=== PATIENT | male | born 1975 | race Caucasian/White ===

== ENCOUNTER 2016-05-09 06:17 | Day surgery (SDC) | payer OTHER ==
[~2016-05-09 06:17] MED LIST: IV START KIT ONE; LACTATED RINGERS 1,000 ML ONE
[2016-05-09] MEDS ORDERED: PROPOFOL 80 ML IV ONE (07:05)
[2016-05-09] MEDS ORDERED: LIDOCAINE 2% (PRES FREE) 5 ML VIAL ONE (07:05)
[2016-05-09] MEDS ORDERED: LACTATED RINGERS 1,000 ML ONE (07:45)
[2016-05-09] MEDS ORDERED: LACTATED RINGERS 1,000 ML IV SCH (08:00)
--- NOTE | 2016-05-11 09:33 | SURGPATH ---
[facility] [address] [place] [id number] Patient Name: FABI HERNANDEZ MR#: [id number] : 1975 Gender: M Specimen #: [id number] Collected: 05/09/2016 Received: 05/10/2016 Reported: 05/11/2016 Submitting Phys: IAIN LAL Copy To Phys: MAURA AGOSTO [facility] Clinical History / Pre-Operative Diagnosis: DIVERTICULITIS WITH PERFORATION/ABSCESS Specimen Source / Surgical Procedure Performed: SIGMOID BIOPSY Interpretation: COLON, SIGMOID, BIOPSY: - COLONIC MUCOSA SHOWING NO DIAGNOSTIC ABNORMALITIES. - NO EVIDENCE OF SIGNIFICANT INFLAMMATION OR MALIGNANCY. Electronically Signed Out Joey Joyner M.D., Ph.D. Gross Description: The specimen is received in a formalin filled container labeled with the patient's name and "sigmoid biopsy". Four harris-quinones biopsies are 0.3-0.5 cm. Totally embedded in one cassette. Florin Dueñas, P.A. Microscopic Description: Examination of multiple levels from the sigmoid colon biopsy shows multiple fragments of histologically unremarkable colonic mucosa. The architecture is intact without evidence of distortion. There is no evidence of significant inflammation or malignancy. 1: [id number] K57.20
== END 2016-05-09 08:32 | disposition home or self-care (01) ==
LOC: SDC 06:17
PROVIDERS: ATTEND Surgery
PROC: 0DBN8ZX Excision of Sigmoid Colon, Via Natural or Artificial Opening Endoscopic, Diagnostic (ICD-10-PCS; principal; 2016-05-09)
DX: K52.9 Noninfective gastroenteritis and colitis, unspecified (principal); K64.8 Other hemorrhoids; K21.0 Gastro-esophageal reflux disease with esophagitis; Q03.0 Malformations of aqueduct of Sylvius; Z88.1 Allergy status to other antibiotic agents; Z88.2 Allergy status to sulfonamides
CPT/HCPCS: 45380; J7120 ×2

== ENCOUNTER 2016-07-06 04:26 | Inpatient (IN) | payer OTHER ==
[2016-07-06] MEDS ORDERED: IOPAMIDOL 370 (76%) IV.SOLN 150 ML IV ONE (04:27)
[2016-07-06] MEDS ORDERED: LACTATED RINGERS 1,000 ML ONE (04:44)
[2016-07-06] MEDS ORDERED: MORPHINE SULFATE 2 MG/ML SYRINGE ONE (04:45)
[2016-07-06] MEDS ORDERED: MORPHINE SULFATE 4 MG/ML SYRINGE ONE (04:45)
[2016-07-06 05:10] LABS: SPECIFIC GRAVITY 1.025 (1.001-1.030); URINE BILIRUBIN NEGATIVE (NEGATIVE); URINE BLOOD NEGATIVE (NEGATIVE); URINE GLUCOSE (UA) NEGATIVE (NEGATIVE); URINE LEUKOCYTE ESTERASE NEGATIVE (NEGATIVE); URINE NITRITE NEGATIVE (NEGATIVE); URINE PROTEIN NEGATIVE (NEGATIVE); URINE UROBILINOGEN NORMAL (0-1 mg/dl)
[2016-07-06 05:11] LABS: URINE APPEARANCE CLEAR; URINE COLOR YELLOW
[2016-07-06 05:22] LABS: ALB/GLOB RATIO 1.1 (>1.0); ALBUMIN 3.8 gm/dL (3.5-5.7)
[2016-07-06 05:32] LABS: ABSOLUTE NEUTROPHIL COUNT 8.5 K/mm3 (1.8-7.7); BASO % 0.3 % (0.2-1.0); EOS # 0.2 (0.0-0.5); EOS % 1.8 % (0.9-2.9); HEMATOCRIT 40.3 % (32.0-52.0); HEMOGLOBIN 13.6 gm/l (14.0-18.0); IMM NEUT # 0.1 K/mm3 (0-0.2); IMM NEUT% 0.6 % (0-1); LYMPH # 1.6 (1.0-4.8); LYMPH % 14.3 % (15-45); MEAN CORPUSCULAR HEMOGLOBIN 28.3 pg (27.0-31.0); MEAN CORPUSCULAR HGB CONC 33.7 g/dl (33.0-37.0); MEAN PLATELET VOLUME 10.8 fl (7.4-10.4); MONO # 0.8 (0.0-0.8); MONO % 7.1 % (4-12); NEUT % 75.9 % (43-75); PLATELET COUNT 289 K/mm3 (130-400); RED CELL DISTRIBUTION WIDTH 13.1 % (11.5-14.5)
[2016-07-06] MEDS ORDERED: CEFTRIAXONE 1 GRAM DUPLEX 50 ML IV ONE (05:53)
[2016-07-06] MEDS ORDERED: METRONIDAZOLE 500 MG/NS 100 ML 100 ML IV ONE (05:54)
[2016-07-06] MEDS ORDERED: PIPERACILLIN-TAZO PREMIX BAG 3.375 G in Premix (D5W) 50 ml 1 EACH IV SCH (06:00)
[2016-07-06] MEDS ORDERED: BLISTEX LIPSTICK 1 EACH TP PRN (06:28)
[2016-07-06] MEDS ORDERED: ONDANSETRON 4 MG/2ML 2 ML VIAL IV PRN (06:28)
[2016-07-06] MEDS ORDERED: ACETAMINOPHEN 325 MG TABLET PO PRN (06:28)
[2016-07-06] MEDS ORDERED: ACETAMINOPHEN 650 MG SUP PR PRN (06:28)
[2016-07-06] MEDS ORDERED: MENTHOL/CETYLPYRD 1 EACH LOZENGE PO PRN (06:28)
[2016-07-06 06:29] VITALS: BMI 32.8
[2016-07-06] MEDS: HYDROMORPHONE HCL 1 MG/ML SYRINGE IV PRN ×2 (06:39→12:22)
[2016-07-06] MEDS ORDERED: D5 1/2NS with 20 mEq KCL 1,000 ML IV ONE (06:49)
[2016-07-06] MEDS: LACTATED RINGERS 1,000 ML IV SCH ×2 (06:56→15:55)
--- NOTE | 2016-07-06 08:11 | CT ---
Exam Type: ABD/PELVIS W/ CON Date and Time: 07/06/2016 4:53 AM Clinical information: Lower abdominal pain after eating dinner. History of diverticulitis. Comparison: 03/27/2016. Procedure: Imaging device: [employer] Aquilion [address] scanner 1 mm axial images were obtained through the abdomen and pelvis. Stacked reconstructed 3, 4 and 5 mm images were photographed in the axial coronal and sagittal planes. No oral contrast was utilized for this examination. 125 ml of Isovue-370 was injected intravenously. Exam: with intravenous contrast. FINDINGS: Lung bases:The visualized lung bases appear to be appropriate with no mass, effusion or consolidation visualized. Liver: the liver is homogeneous with no discrete abnormality visualized. No definite findings of biliary dilatation are observed. Spleen: The spleen is homogeneous and does not appear to be enlarged. Gallbladder: Normal without enlargement or evidence of adjacent inflammatory changes. Pancreas: Normal without enlargement or evidence of adjacent inflammatory changes. Adrenal glands: Normal without enlargement or evidence of adjacent inflammatory changes. Abdominal aorta: The aorta is of normal caliber and appears to be without significant atherosclerotic disease. Kidneys: The kidneys appear to be symmetric in size with no perinephric inflammatory changes are identified. No current findings of hydronephrosis are seen. Bowel structures: There is evidence of focal thickening of the mid to distal sigmoid colon with adjacent mesenteric inflammatory stranding and some pelvic free fluid. There is a rim-enhancing collection seen along the internal curvature of the sigmoid colon on image 84 measuring 2.4 x 1.4 x 2.1 cm in size with some internal air observed. This is at the same location as the finding noted on prior examination with slight increase in size. A few adjacent foci of free air are present suggesting diverticular rupture. No current findings of obstruction are visualized. Appendix: The appendix is well-visualized and appears to be of normal caliber. No periappendiceal inflammatory changes or CT findings of appendicitis are currently observed. Bladder: The bladder is of normal contour. No wall thickening or significant distention is observed. Hernia: No abdominal wall or inguinal hernia is visualized on this examination. Adenopathy: A few mildly prominent central mesenteric and right lower quadrant lymph nodes are visualized. Osseous structures: No discrete osseous abnormalities are identified. Pelvic structures: No discrete pelvic abnormalities are visualized in this examination. IMPRESSION: 1. Focal thickening with adjacent mesenteric inflammatory stranding and free fluid at the level of the mid to distal sigmoid colon most consistent with findings of focal diverticulitis. There is note made of a rim-enhancing 2.4 cm collection along the inner curvature of the sigmoid colon suggestive of a diverticular abscess. This is at the same location as the finding noted on prior exam with very slight increase in size. Adjacent mesenteric free air suggest diverticular rupture as well. 2. Mildly prominent central and right lower quadrant mesenteric lymphadenopathy. 3. A small hiatal hernia. The findings were called to the emergency room at 0545 hours, 07/06/2016, by [facility].
[2016-07-06] MEDS: PIPERACILLIN-TAZO PREMIX BAG 3.375 G in Premix (D5W) 50 ml 1 EACH IV SCH ×3 (08:22→20:00)
[2016-07-07] MEDS: LACTATED RINGERS 1,000 ML IV SCH ×3 (00:27→11:26)
[2016-07-07] MEDS: PIPERACILLIN-TAZO PREMIX BAG 3.375 G in Premix (D5W) 50 ml 1 EACH IV SCH ×4 (02:07→20:00)
[2016-07-07 06:12] LABS: HEMATOCRIT 35.2 % (32.0-52.0); HEMOGLOBIN 11.8 gm/l (14.0-18.0); MEAN CELL VOLUME 84.6 fl (80.0-94.0); MEAN CORPUSCULAR HEMOGLOBIN 28.4 pg (27.0-31.0); MEAN CORPUSCULAR HGB CONC 33.5 g/dl (33.0-37.0); RED CELL DISTRIBUTION WIDTH 13.4 % (11.5-14.5)
[2016-07-07 06:36] LABS: CALCIUM 8.7 mg/dL (8.6-10.3)
--- NOTE | 2016-07-07 08:01 | PDOC43 ---
- Subjective Subjective: Reports Flatus, Reports Pain Tolerable, Reports Bowel Movement, Denies Nausea - Objective Vital Signs Temperature 99.3 F 07/07/16 00:15 Pulse Rate 85 07/07/16 00:15 Respiratory Rate 20 07/07/16 02:00 Blood Pressure 130/92 07/07/16 00:15 O2 Saturation by Pulse Oximetry 94 07/07/16 00:15 Oxygen Delivery Method Room Air Oxygen Flow Rate 0 Laboratory 07/07/16 05:30 07/07/16 05:30 07/07/16 05:30 RBC 4.16 L Estimated GFR 107 H Active Medication Orders Category Date Time Status Enoxaparin Sodium [Lovenox] Med 07/07/16 08:00 Ordered 40 mg SUB-Q Q24H Lactated Ringers 1,000 ml Med 07/07/16 07:57 Ordered IV 60 mls/hr Piperacillin-Tazo Premix Bag [Zosyn 3.375 G] 3.375 g Med 07/06/16 08:00 Active Premix (D5W) 50 ml 1 each IV Q6H Intake and Output 07/06/16 07/07/16 07/08/16 06:59 06:59 06:59 Intake Total 4645 Output Total 1000 Balance 3645 General: Alert, Oriented x3 Abdomen: Soft, Tenderness (MIldly improved), Non-Distended - Assessment/ Plan (1) Diverticulitis large intestine Qualifiers: Diverticulitis bleeding: without bleeding Diverticulitis complication: with perforation and abscess Qualifier Code: (K57.20) Diverticulitis of large intestine with perforation and abscess without bleeding Status: Acute Assessment/ Plan: Fever and persistent tenderness. But overall seems to be getting better. Start liquids PO. Considering repeat CT in 2-3 days to re-evaluate for defined drainable abscess. May go home with PICC and IV abx. Lovenox for DVT prophylaxis.
--- NOTE | 2016-07-07 08:50 | HP ---
CAMERON CARBONE [id number] DATE OF SERVICE: 07/06/2016 CHIEF COMPLAINT: Abdominal pain. HISTORY OF PRESENT ILLNESS: Cameron Carbone is a 41-year-old male who presented to the emergency room with lower abdominal pain. He has a history of admission in March of 2016 for a complicated case of sigmoid diverticulitis. He was able to treat that with intravenous antibiotics. He had a follow-up colonoscopy on 05/09/2016. An outpatient discussion of treatment of diverticulitis was performed and he deferred surgical intervention at that time. He presented to the hospital with very similar symptoms in his lower abdomen. It seems to be a little worse on the right compared to the left. He has not had fevers or chills. He has not been vomiting. He does not really have an appetite. He has not had significant diarrhea or blood in his stools. A CT scan done this morning shows recurrent diverticulitis, with a 2.6 cm diverticular abscess adjacent to the sigmoid colon. There is some free fluid in the mesentery. There is a little bit of extraluminal air in the area, but not free intraperitoneal air. PAST MEDICAL HISTORY: 1. Gastroesophageal reflux disease, with a hiatal hernia. 2. 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 PAST SURGICAL HISTORY: Includes six surgeries as a teenager for shunt placement and malfunction replacement. He currently does not have intraabdominal tubing of any type. CURRENT HOME MEDICATIONS: Pantoprazole. ALLERGIES: Sulfa. FAMILY HISTORY: No family history of cancer. No diabetes or heart problems. SOCIAL HISTORY: He does not smoke. He rarely drinks alcohol. He denies drug use. REVIEW OF SYSTEMS: Constitutional - no complaints. HEENT - eyes, no complaints. Ears, nose and throat, no complaints. Cardiac - no complaints. Pulmonary - he did have a significant cough over the last month. This seems to have resolved in the last three or four days. GI - as above. - just some pressure when he urinates. Neurologic - no complaints. Endocrine - no complaints. Hematologic - no complaints. Psychiatric - no complaints. PHYSICAL EXAMINATION: VITAL SIGNS: Temperature 98.6. Pulse 90. Blood pressure 107/60. Respirations 16. His O2 sat is 97% on room air. GENERAL: He is awake and alert. No distress. HEENT: Head is atraumatic and normocephalic. Pupils are equal. Sclera nonicteric. NECK: Supple. LUNGS: Clear to auscultation. Normal respiratory effort. HEART: Regular rate and rhythm. No murmurs heard. ABDOMEN: Soft and nondistended. He is tender in the lower abdomen, right worse than left. No masses are palpable. No involuntary guarding is present. No rebound tenderness is present. RECTAL: Exam not performed. EXTREMITIES: Without cyanosis, clubbing or edema. NEUROLOGIC: He is alert and oriented. Sensation grossly intact in all extremities. PSYCHIATRIC: Shows no signs of anxiety or depression. He appears able to make informed medical decisions. LABORATORY: Sodium 138, potassium 3.8, chloride 103, carbon dioxide is 27, BUN is 13, creatinine 0.7 and glucose is 101. Liver function tests are normal. White blood cell count 11.2, hemoglobin is 13.6 and platelets are 289. Urinalysis is normal. IMAGING: A CT scan of the abdomen and pelvis was reviewed with the radiologist. The area of abscess is directly adjacent to the sigmoid colon and is small. It would be difficult to drain percutaneously. There is some free fluid in the lower abdomen that is not a defined abscess. We decided it was not worth percutaneous drainage of this. ASSESSMENT: 1. Recurrent diverticulitis, with localized paracolic perforation and abscess. 2. Gastroesophageal reflux disease. 3. Recent upper respiratory infection. PLAN: At this point he is not showing signs of diffuse peritonitis. I think it is reasonable to continue conservative treatment with intravenous antibiotics. We will keep him NPO. We will try to get him through this acute event and consider elective sigmoid colectomy. We also discussed the option of laparoscopy with wash-out and drain placement. With his fairly localized symptoms and lack of systemic toxicity, I think we can hold-off on that. We may need to reevaluate a CT scan in three to four days to evaluate for resolution or progression of small abscess. I did explain that if he worsens, may need surgery, whether that be wash-out or possible colectomy with colostomy. cc: Dr. Sony Prasad
[2016-07-07] MEDS: ENOXAPARIN SODIUM 40 MG/0.4 ML SYRINGE SUB-Q SCH (09:00)
[2016-07-08] MEDS: LACTATED RINGERS 1,000 ML IV SCH ×3 (02:30→20:52)
[2016-07-08] MEDS: PIPERACILLIN-TAZO PREMIX BAG 3.375 G in Premix (D5W) 50 ml 1 EACH IV SCH ×4 (02:33→20:51)
[2016-07-08 06:15] LABS: HEMATOCRIT 34.4 % (32.0-52.0); HEMOGLOBIN 11.5 gm/l (14.0-18.0); MEAN CELL VOLUME 84.7 fl (80.0-94.0); MEAN CORPUSCULAR HEMOGLOBIN 28.3 pg (27.0-31.0); MEAN CORPUSCULAR HGB CONC 33.4 g/dl (33.0-37.0); RED CELL DISTRIBUTION WIDTH 13.3 % (11.5-14.5)
[2016-07-08 06:32] LABS: CALCIUM 8.9 mg/dL (8.6-10.3)
[2016-07-08] MEDS: ENOXAPARIN SODIUM 40 MG/0.4 ML SYRINGE SUB-Q SCH (07:50)
--- NOTE | 2016-07-08 11:02 | PDOC43 ---
- Subjective Subjective: Reports Flatus, Reports Pain Tolerable (improved significantly. Feels "sore" inside), Reports Bowel Movement (diarrhea a couple times yesterday) , Denies Vomitting, Denies Nausea - Objective Vital Signs Temperature 98.7 F 07/08/16 08:07 Pulse Rate 71 07/08/16 08:07 Respiratory Rate 20 07/08/16 08:07 Blood Pressure 123/78 07/08/16 08:07 O2 Saturation by Pulse Oximetry 96 07/08/16 08:07 Oxygen Delivery Method Room Air Oxygen Flow Rate 0 Laboratory 07/08/16 05:45 07/08/16 05:45 07/08/16 05:45 RBC 4.06 L Estimated GFR 107 H Active Medication Orders Category Date Time Status Enoxaparin Sodium [Lovenox] Med 07/07/16 08:00 Active 40 mg SUB-Q Q24H Lactated Ringers 1,000 ml Med 07/07/16 07:57 Active IV 60 mls/hr Piperacillin-Tazo Premix Bag [Zosyn 3.375 G] 3.375 g Med 07/06/16 08:00 Active Premix (D5W) 50 ml 1 each IV Q6H Intake and Output 07/06/16 07/07/16 07/08/16 23:59 23:59 23:59 Intake Total 2315 2860 911 Output Total 950 2400 100 Balance 1365 460 811 General: Alert, Oriented x3, Cooperative, No Acute Distress HEENT: Atraumatic, PERRLA, EOMI, Mucous membr. moist/pink Lungs: Clear to Auscultation Bilaterally, Normal Air Movement Cardiovascular: Regular Rate and Rhythm, Normal S1, Normal S2, No Murmur Abdomen: Soft, Tenderness (mild), Non-Distended, Normal Bowel Sounds Psych/Mental Status: Normal Affect, Normal Mood - Assessment/ Plan (1) Diverticulitis large intestine Qualifiers: Diverticulitis bleeding: without bleeding Diverticulitis complication: with perforation and abscess Qualifier Code: (K57.20) Diverticulitis of large intestine with perforation and abscess without bleeding Status: Acute Assessment/ Plan: Afebrile Tenderness improving Still diarrhea Continue ABX and liquid diet Repeat scan tomorrow to see if abscess formation
[2016-07-09] MEDS: PIPERACILLIN-TAZO PREMIX BAG 3.375 G in Premix (D5W) 50 ml 1 EACH IV SCH ×2 (02:31→08:23)
--- NOTE | 2016-07-09 06:46 | PDOC43 ---
- Subjective Subjective: Reports Pain Tolerable (ache only), Reports Bowel Movement (bloody) - Objective Vital Signs Temperature 98.5 F 07/09/16 02:30 Pulse Rate 73 07/09/16 02:30 Respiratory Rate 18 07/09/16 02:30 Blood Pressure 148/92 07/09/16 02:30 O2 Saturation by Pulse Oximetry 99 07/09/16 02:30 Oxygen Delivery Method Room Air Oxygen Flow Rate 0 Laboratory 07/08/16 05:45 07/08/16 05:45 Active Medication Orders Category Date Time Status Enoxaparin Sodium [Lovenox] Med 07/07/16 08:00 Active 40 mg SUB-Q Q24H Lactated Ringers 1,000 ml Med 07/07/16 07:57 Active IV 60 mls/hr Piperacillin-Tazo Premix Bag [Zosyn 3.375 G] 3.375 g Med 07/06/16 08:00 Active Premix (D5W) 50 ml 1 each IV Q6H Intake and Output 07/07/16 07/08/16 07/09/16 06:59 06:59 06:59 Intake Total 3795 2291 3442 Output Total 1850 1600 1700 Balance 4283 407 9509 General: Alert, Oriented x3 Abdomen: Soft, Non-Distended Psych/Mental Status: Normal Affect - Assessment/ Plan (1) Diverticulitis large intestine Qualifiers: Diverticulitis bleeding: with bleeding Diverticulitis complication: with perforation and abscess Qualifier Code: (K57.21) Diverticulitis of large intestine with perforation and abscess with bleeding Status: Acute Assessment/ Plan: Afebrile Check CBC this am. Continue ABX and liquid diet. Repeat scan today to see if abscess formation.
[2016-07-09 07:02] LABS: HEMATOCRIT 36.8 % (32.0-52.0); HEMOGLOBIN 12.4 gm/l (14.0-18.0); MEAN CELL VOLUME 84.8 fl (80.0-94.0); MEAN CORPUSCULAR HEMOGLOBIN 28.6 pg (27.0-31.0); MEAN CORPUSCULAR HGB CONC 33.7 g/dl (33.0-37.0)
[2016-07-09] MEDS ORDERED: IOPAMIDOL 370 (76%) IV.SOLN 150 ML IV ONE (08:01)
--- NOTE | 2016-07-09 08:38 | CT ---
Exam Type: ABD/PELVIS W/ CON Date and Time: 07/09/2016 6:34 AM Clinical information: Follow-up abscess Comparison: CT 07/06/2016 and 03/27/2016. Technique: Contiguous axial 4 mm images were obtained from the lung bases through the pelvis after the uneventful IV administration of 125 cc of Isovue-370. Sagittal and coronal reformations with high resolution lung algorithm images were also obtained at this time. CT DI: 25.1 DLP 1294.7 FINDINGS: Lung base : Dependent and atelectatic changes are present. Visualized heart:There is no pericardial effusion. LIVER: Diffuse fatty infiltration with focal sparing along the gallbladder fossa. BILE DUCTS: normal caliber. GALLBLADDER: Suggestion of small stones or debris. Otherwise normal PANCREAS: within normal limits. SPLEEN: within normal limits. ADRENALS: within normal limits. KIDNEYS: within normal limits. Stomach and small BOWEL: Normal caliber. Large bowel: Air and stool are noted within the large bowel. Appendix is normal. The area of prior abscess has had significant improvement in comparison to prior examination. No abscess is identified at this time. Residual inflammatory changes present in the same region with wall thickening of the sigmoid colon and fat stranding compatible with residual diverticulitis. LYMPH NODES: No enlarged mesenteric lymph nodes. PERITONEUM: no ascites or free air, no fluid collection. VESSELS: within normal limits RETROPERITONEUM: within normal limits. ABDOMINAL WALL: within normal limits. Bladder: Normal BONES: within normal limits. IMPRESSION: Significant improvement in the patient's previously seen and described diverticulitis with resolution of the abscess. Persistent wall thickening and pericolonic inflammatory changes are present though milder in comparison to prior study. Other incidental, stable findings as above.
[2016-07-09] MEDS: ENOXAPARIN SODIUM 40 MG/0.4 ML SYRINGE SUB-Q SCH (09:40)
[2016-07-09] MEDS: LACTATED RINGERS 1,000 ML IV SCH (09:41)
[2016-07-09 13:33] VITALS: BP 134/90
--- NOTE | 2016-07-10 13:18 | DS ---
CAMERON CARBONE [id number] DATE OF ADMISSION: July 06, 2016 DATE OF DISCHARGE: July 09, 2016 SURGERY SERVICE: Pierce Porter M.D. HISTORY: Cameron Carbone is a 41-year-old male who has known history of sigmoid diverticulitis. He had previously had an episode that required hospitalization for a microperforation. He was treated conservatively with that. He had recurrence of symptoms on the day prior to admission. He presented to the emergency room where a CT scan was obtained. This showed recurrent diverticulitis with a possible 2.6 cm abscess adjacent to the sigmoid colon. There was some free fluid in the mesentery, a small amount of extraluminal air seen in the abscess but not free intraperitoneal air. He was admitted for intravenous antibiotics. PAST MEDICAL HISTORY: 1. Gastroesophageal reflux disease with a hiatal hernia. 2. 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 PAST SURGICAL HISTORY: Six surgeries as a teenager for shunt placement and malfunction replacement. CURRENT MEDICATIONS: Pantoprazole. ALLERGIES: SULFA. HOSPITAL COURSE: On physical exam his vital signs were stable. He was without fever. His abdomen showed lower abdominal tenderness but no other peritoneal signs. It was felt that continued conservative treatment would be attempted. He was started on Zosyn. The possibility of CT guided drainage of his abscess was discussed but felt not to be accessible. By the following morning he was passing gas. His pain was mildly improved. He was without nausea. He was without fever. His white count returned to normal. He was encouraged to ambulate and was given Lovenox for deep venous thrombosis prophylaxis. On the second hospital day, he was started on some liquids. He did have some diarrhea. This did begin to show some blood and the Lovenox was held. His pain was continuing to improve. We decided to repeat the CT scan on July 09, 2016 to determine if there was a developing abscess. It was felt that the prior abscess had shown significant improvement with no obvious abscess identified. There were some residual inflammatory changes in the area with thickening of the sigmoid colon. There was no free air. We had discussed previously about possible PICC placement and intravenous antibiotic. With significant improvement seen on CT scan, we decided to discharge on oral antibiotics. FINAL DIAGNOSIS: Sigmoid diverticulitis with microperforation and abscess. PROCEDURES PERFORMED: None. INSTRUCTIONS ON DISCHARGE: 1. He is to resume his pantoprazole. 2. He is also given a prescription for Augmentin to take twice daily. 3. Metronidazole to take three times a day. 4. He is to avoid lettuce, raw vegetables, nuts and seeds. 5. He is to start with bland foods and slowly introduce others. 6. He is to drink plenty of liquids. 7. He is to follow up in the office in seven to ten days.
== END 2016-07-09 14:35 | disposition home or self-care (01) | DRG 378 ==
LOC: ED 04:26 → SDC 05:52 → MS 05:52 → SDC 06:28
PROVIDERS: ADMIT Surgery; ATTEND Surgery
DX: K57.21 Diverticulitis of large intestine with perforation and abscess with bleeding (principal); R59.1 Generalized enlarged lymph nodes; K44.9 Diaphragmatic hernia without obstruction or gangrene; K21.9 Gastro-esophageal reflux disease without esophagitis; J06.9 Acute upper respiratory infection, unspecified

== ENCOUNTER 2016-08-21 06:18 | Inpatient (IN) | payer OTHER ==
[~2016-08-21 06:18] MED LIST changes: +ACETAMINOPHEN 500 MG TABLET PO SCH; +CELECOXIB 200 MG CAPSULE PO ONE; -IV START KIT ONE; -LACTATED RINGERS 1,000 ML ONE
[2016-08-21] MEDS ORDERED: LACTATED RINGERS 1,000 ML ONE (06:30)
[2016-08-21] MEDS ORDERED: IV START KIT ONE (06:30)
[2016-08-21] MEDS ORDERED: ERTAPENEM SODIUM 1 G in NS 0.9% (MINI-BAG PLUS) 50 ML IV ONE (06:45)
[2016-08-21] MEDS ORDERED: GABAPENTIN 600 MG TABLET PO SCH (06:45)
[2016-08-21] MEDS ORDERED: GABAPENTIN 600 MG TABLET ONE (07:08)
[2016-08-21] MEDS ORDERED: CELECOXIB 200 MG CAPSULE ONE (07:08)
[2016-08-21] MEDS ORDERED: ACETAMINOPHEN 500 MG TABLET ONE (07:08)
[2016-08-21] MEDS ORDERED: BUPIVACAINE 0.5% W/EPI SDV 30 ML VIAL ONE (07:12)
[2016-08-21] MEDS ORDERED: BUPIVACAINE (LIPOSOMAL) PF 1.3% 20 ML VIAL IF ONE (07:51)
[2016-08-21] MEDS ORDERED: FENTANYL 250 MCG/5 ML AMP ONE ×3 (08:12→11:46)
[2016-08-21] MEDS ORDERED: MIDAZOLAM HCL 1 MG/ML 2ML VIAL ONE (08:12)
[2016-08-21] MEDS ORDERED: PROPOFOL 20 ML IV ONE ×7 (09:14→13:02)
[2016-08-21] MEDS ORDERED: ROCURONIUM BROMIDE 10 MG/ML DOSE IV ONE (09:14)
[2016-08-21] MEDS ORDERED: LIDOCAINE 2% (MULTI DOSE) 10 ML VIAL ONE (09:14)
[2016-08-21] MEDS ORDERED: EPHEDRINE SULFATE UD SYR 25 MG 25 MG/5 ML SYRINGE IV ONE (09:15)
[2016-08-21] MEDS ORDERED: DEXAMETHASONE SOD PHOS 4 MG/1 ML VIAL ONE (09:19)
[2016-08-21] MEDS ORDERED: PROMETHAZINE HCL 25 MG/ML VIAL ONE (09:20)
[2016-08-21] MEDS ORDERED: ONDANSETRON 4 MG/2ML 2 ML VIAL ONE ×2 (09:22→12:54)
[2016-08-21] MEDS ORDERED: KETAMINE HCL UD SYRINGE 100 MG/2 ML IV ONE (09:32)
[2016-08-21] MEDS ORDERED: PHENYLEPHRINE 10 MG/1 ML (1%) VIAL ONE (09:38)
[2016-08-21] MEDS ORDERED: ATROPINE SULFATE 0.4 MG/1 ML VIAL IV PRN (10:00)
[2016-08-21] MEDS ORDERED: LACTATED RINGERS 1,000 ML IV SCH (10:00)
[2016-08-21] MEDS ORDERED: FENTANYL 100 MCG/2 ML VIAL IV PRN (10:00)
[2016-08-21] MEDS ORDERED: NALOXONE HCL 0.4 MG/ML VIAL IV PRN (10:00)
[2016-08-21] MEDS ORDERED: ONDANSETRON 4 MG/2ML 2 ML VIAL IV PRN ×2 (10:00→14:37)
[2016-08-21] MEDS ORDERED: MEPERIDINE 25 MG/ML SYRINGE IV PRN (10:00)
[2016-08-21] MEDS ORDERED: PROMETHAZINE HCL 25 MG/ML VIAL IM PRN (10:00)
[2016-08-21] MEDS ORDERED: NEOSTIGMINE METHYLSULFATE 1 MG/ML DOSE ONE (12:54)
[2016-08-21] MEDS ORDERED: GLYCOPYRROLATE 0.2 MG/ML 1ML VIAL ONE (12:54)
[2016-08-21] MEDS ORDERED: NALOXONE HCL 0.4 MG/ML VIAL ONE (13:12)
[2016-08-21] MEDS ORDERED: HYDROMORPHONE HCL 1 MG/ML SYRINGE ONE ×2 (13:43→13:56)
[2016-08-21] MEDS: HYDROMORPHONE HCL 1 MG/ML SYRINGE IV PRN ×4 (13:44→14:02)
[2016-08-21] MEDS ORDERED: FENTANYL 100 MCG/2 ML VIAL ONE (14:07)
[2016-08-21] MEDS ORDERED: HYDROMORPHONE HCL 1 MG/ML SYRINGE IV PRN (14:37)
[2016-08-21] MEDS ORDERED: KETOROLAC TROMETHAMINE 30 MG/ML 1 ML VIAL IV SCH (14:37)
[2016-08-21] MEDS ORDERED: MENTHOL/CETYLPYRD 1 EACH LOZENGE PO PRN (14:37)
[2016-08-21] MEDS ORDERED: BLISTEX LIPSTICK 1 EACH TP PRN (14:37)
[2016-08-21] MEDS ORDERED: OXYCODONE HCL 5 MG TABLET PO PRN (14:37)
[2016-08-21 15:10] VITALS: BMI 30.9
[2016-08-21] MEDS ORDERED: PUMP TUBING ONE (16:12)
[2016-08-21] MEDS ORDERED: HYDROMORPHONE HCL 0.5 MG/0.5 ML SYRINGE IV PRN (16:16)
[2016-08-21] MEDS: D5 1/2NS with 20 mEq KCL 1,000 ML IV SCH (16:20)
[2016-08-21] MEDS: GABAPENTIN 600 MG TABLET PO SCH ×2 (18:35→20:29)
[2016-08-21] MEDS: KETOROLAC TROMETHAMINE 30 MG/ML 1 ML VIAL IV SCH (19:12)
[2016-08-21] MEDS: PANTOPRAZOLE 40 MG TABLET DR PO SCH (19:14)
[2016-08-21] MEDS: ACETAMINOPHEN 500 MG TABLET PO SCH (20:28)
[2016-08-22] MEDS: KETOROLAC TROMETHAMINE 30 MG/ML 1 ML VIAL IV SCH ×4 (01:39→18:29)
[2016-08-22] MEDS: ACETAMINOPHEN 500 MG TABLET PO SCH ×4 (01:40→20:37)
[2016-08-22] MEDS: D5 1/2NS with 20 mEq KCL 1,000 ML IV SCH ×2 (03:26→16:38)
[2016-08-22 07:18] LABS: HEMOGLOBIN 12.8 gm/l (14.0-18.0); MEAN CELL VOLUME 86.5 fl (80.0-94.0); MEAN CORPUSCULAR HEMOGLOBIN 28.4 pg (27.0-31.0); MEAN CORPUSCULAR HGB CONC 32.8 g/dl (33.0-37.0); RED CELL DISTRIBUTION WIDTH 13.2 % (11.5-14.5)
[2016-08-22] MEDS: GABAPENTIN 600 MG TABLET PO SCH ×3 (08:42→20:37)
[2016-08-22 09:44] LABS: I-STAT CREATININE 0.7 mg/dL (0.6-1.3)
--- NOTE | 2016-08-22 10:20 | PDOC43 ---
- Subjective Subjective: Reports Pain Tolerable, Denies Flatus, Denies Nausea - Objective Vital Signs Temperature 97.9 F 08/22/16 08:23 Pulse Rate 77 08/22/16 08:23 Respiratory Rate 18 08/22/16 08:23 Blood Pressure 117/78 08/22/16 08:23 O2 Saturation by Pulse Oximetry 96 08/22/16 08:23 Oxygen Delivery Method Room Air Oxygen Flow Rate 0 Laboratory 08/22/16 06:15 08/22/16 06:15 08/22/16 06:15 RBC 4.51 L MCHC 32.8 L Active Medication Orders Category Date Time Status Acetaminophen [Tylenol] Med 08/21/16 20:30 Active 1,000 mg PO Q6H D5 1/2NS with 20 mEq KCL [D51/2NS with 20 mEq KCL] 1, Med 08/21/16 14:37 Active 000 ml IV 75 mls/hr Enoxaparin Sodium [Lovenox] Med 08/22/16 13:00 Active 40 mg SUB-Q Q24H Gabapentin [Neurontin] Med 08/21/16 15:00 Active 600 mg PO TID Hydromorphone HCl [Dilaudid] Med 08/21/16 14:37 Active 0.5 - 1 mg IV Q1H PRN Hydromorphone HCl [Dilaudid] Med 08/21/16 16:16 Active 0.5 - 1 mg IV Q1H PRN Ketorolac Tromethamine [Toradol] Med 08/21/16 18:45 Active 30 mg IV Q6H Lip [place] [Blistex] Med 08/21/16 14:37 Active 1 each TP PRN PRN Menthol/Cetylpyridinium [Cepacol] Med 08/21/16 14:37 Active 1 each PO PRN PRN Ondansetron 4 mg/2ml Vial [Zofran] Med 08/21/16 14:37 Active 4 mg IV Q4H PRN Oxycodone HCl [Roxicodone] Med 08/21/16 14:37 Active 5 - 10 mg PO Q4H PRN Pantoprazole Sodium [Protonix] Med 08/21/16 14:37 Active 40 mg PO Q24H Sodium Chloride 0.9% Flush [Normal Saline 10ml Flush] Med 08/21/16 14:37 Active 10 - 50 ml IV PRN PRN Sodium Chloride 0.9% Flush [Normal Saline 10ml Flush] Med 08/21/16 17:00 Active 10 ml IV Q8HR Intake and Output 08/21/16 08/22/16 08/23/16 06:59 06:59 06:59 Intake Total 500 Output Total 2200 Balance -1700 General: Alert, Oriented x3 Abdomen: Soft, Non-Distended Wound: Dressing Clean/Dry/Intact Psych/Mental Status: Normal Affect - Assessment/ Plan (1) Diverticulitis large intestine Status: AcuteAssessment/ Plan: Continue on clear liquids today. DC naranjo. Ambulate. Lovenox for DVT prevention. IS.
[2016-08-22] MEDS: ENOXAPARIN SODIUM 40 MG/0.4 ML SYRINGE SUB-Q SCH (12:04)
[2016-08-22 13:21] LABS: ALB/GLOB RATIO 1.2 (>1.0); ALBUMIN 3.7 gm/dL (3.5-5.7); CALCIUM 9.1 mg/dL (8.6-10.3)
[2016-08-22] MEDS: PANTOPRAZOLE 40 MG TABLET DR PO SCH (13:59)
--- NOTE | 2016-08-22 21:47 | OP ---
FABI HERNANDEZ [id number] DATE OF PROCEDURE: 08/21/2016 PREOPERATIVE DIAGNOSIS: Recurring sigmoid diverticulitis. POSTOPERATIVE DIAGNOSIS: Recurring sigmoid diverticulitis. PROCEDURE: Laparoscopic sigmoid colectomy. SURGEON: Dr. Pierce Porter RADIOLOGY SPECIALIST: Dr. Lauri Rowe ANESTHESIA: Rk Garcia CRNA, general endotracheal. INDICATIONS: A 41-year-old male who has had multiple bouts of complicated diverticulitis who presents now for elective sigmoid colectomy. DESCRIPTION: With informed consent, he was taken to the operating room and was laid supine on the OR table. General endotracheal anesthetic was administered. The legs were placed in Oscar stirrups. A Lopes catheter was placed. The abdomen was prepped and draped in a sterile fashion. Local anesthetic was administered below the umbilicus. A vertical incision was made. I dissected down to the fascia. This was opened with curved Anand scissors. Sutures of Vicryl were placed on the fascial edges and a Elyssa port was placed. A pneumoperitoneum was created. Local anesthetic was administered in the right lower quadrant. An incision was made. A 12 mm port was placed. Local anesthetic was administered in the suprapubic region. A small Pfannenstiel incision was made. Electrocautery was used to divide the subcutaneous fat. The rectus was cephalad and inferiorly. The midline muscles were split and the peritoneum opened with Metzenbaum scissors. A GelPort was placed and a pneumoperitoneum was recreated. There was clearly thickening of the sigmoid colon above the sacral promontory. It was fairly adherent to the left pelvic wall. I used a medial to lateral approach. The vascular pedicle to the sigmoid colon was held-up. We dissected through the mesentery fat using a LigaSure. Eventually I isolated the vascular pedicle to the sigmoid colon. We identified the location of the ureter posterolateral to that. The vessels were divided with an Endo ELPIDIO using a vascular load. We then used a LigaSure to divide the mesentery up to the sacral promontory. It was moderately difficult to mobilize the sigmoid colon from the left pelvic sidewall. Eventually we were able to do that. This is extended up cephalad along the white line of Toldt of the descending colon. I was able to mobilize this basically to the midline. I scored the pelvic peritoneum of the mesentery of the rectum with electrocautery. A LigaSure was used to divide the mesentery, including the superior rectal vessels. I got into the presacral plane and dissected down to the peritoneal reflection. It appeared that we were in an area of soft colon. Using an Endo ELPIDIO, we then divided the distal colon at the rectosigmoid junction. The GelPort was removed. I was able to pull the specimen up into the wound. It appeared that we had adequate proximal mobilization. The colon was clamped and a purse string was placed. The colon was then . The specimen was handed-off to pathology, with the proximal end being open. The colon itself was actually quite small. Using a sizer, we felt that the proximal colon would only accommodate a 25 EEA stapler. The anvil of a 25 stapler was placed and the purse string was tightened. From below, Dr. Rowe first used the dilators to identify the rectal stump. We then placed a 25 EEA stapler into the rectal stump. The trocar was advanced. This was mated with the proximal anvil. We made sure there was no significant tension. We made sure there was no paracolic fat falling into the anastomosis. We made sure there was no twisting. The stapler was brought down to the appropriate level of tension and then fired. The stapler was removed. We had two complete mucosal donuts. The pelvis was filled with fluid. Dr. Rowe placed the colonoscope into the rectum and advanced through the anastomosis. We had the proximal colon clamped laparoscopically. With the pelvis filled with fluid, there was no evidence of air leak at the anastomosis. There was no evidence of bleeding at the anastomosis. The scope was withdrawn. We did identify some adhesions of the left lobe of the liver to the anterior abdominal wall and diaphragm. This was most likely from prior ventriculoperitoneal shunt. I did lyse some of that. The pelvis was irrigated. We appeared to have adequate hemostasis. The right lower quadrant port site was closed with a bullet and a Brijesh-Prisca suture passer with an 0-Vicryl suture. The GelPort was removed and the Pfannenstiel incision was closed with a 2-0 Vicryl on the peritoneum. The rectus fascia was closed with looped 0-PDS. The wound was vigorously irrigated. The wound was closed with karla. The infraumbilical fascial defect was closed with [id number] sutures of 0-Vicryl. This and the right lower quadrant port site were closed with karla. He tolerated the procedure and was taken to the recovery room in stable condition. Note was made that needle, instrument and lap counts were reported as correct at the time of closure.
[2016-08-23] MEDS: KETOROLAC TROMETHAMINE 30 MG/ML 1 ML VIAL IV SCH ×4 (00:29→18:26)
[2016-08-23] MEDS: ACETAMINOPHEN 500 MG TABLET PO SCH ×4 (02:28→20:39)
[2016-08-23] MEDS: D5 1/2NS with 20 mEq KCL 1,000 ML IV SCH (06:03)
[2016-08-23 07:18] LABS: HEMATOCRIT 34.9 % (32.0-52.0); HEMOGLOBIN 11.3 gm/l (14.0-18.0); MEAN CELL VOLUME 88.1 fl (80.0-94.0); MEAN CORPUSCULAR HEMOGLOBIN 28.5 pg (27.0-31.0); MEAN CORPUSCULAR HGB CONC 32.4 g/dl (33.0-37.0); RED CELL DISTRIBUTION WIDTH 13.5 % (11.5-14.5)
[2016-08-23 07:32] LABS: CALCIUM 8.9 mg/dL (8.6-10.3)
[2016-08-23] MEDS: GABAPENTIN 600 MG TABLET PO SCH ×3 (08:32→20:39)
[2016-08-23] MEDS: ENOXAPARIN SODIUM 40 MG/0.4 ML SYRINGE SUB-Q SCH (12:40)
[2016-08-23] MEDS: PANTOPRAZOLE 40 MG TABLET DR PO SCH (14:48)
[2016-08-24] MEDS: KETOROLAC TROMETHAMINE 30 MG/ML 1 ML VIAL IV SCH ×2 (00:45→07:50)
[2016-08-24] MEDS: ACETAMINOPHEN 500 MG TABLET PO SCH ×2 (02:51→09:51)
[2016-08-24 07:49] VITALS: BP 142/92
[2016-08-24] MEDS: GABAPENTIN 600 MG TABLET PO SCH (09:51)
--- NOTE | 2016-08-24 10:29 | SURGPATH ---
[facility] [address] [place] [id number] Patient Name: FABI HERNANDEZ MR#: [id number] : 1975 Gender: M Specimen #: [id number] Collected: 08/21/2016 Received: 08/23/2016 Reported: 08/24/2016 Submitting Phys: IAIN LAL Copy To Phys: MAURA AGOSTO [facility] Clinical History / Pre-Operative Diagnosis: Diverticulitis Specimen Source / Surgical Procedure Performed: Sigmoid colon (proximal end open) Interpretation: SIGMOID COLON, SEGMENTAL RESECTION: - DIVERTICULITIS WITH ABSCESS Electronically Signed Out Keyur Em M.D. Gross Description: The specimen is received in a formalin filled container labeled with the patient's name and "sigmoid colon". A segment of large bowel is 12.5 cm in length and has an external diameter which averages 2.5 cm. The serosa is smooth and quinones and the attached pericolic fat averages 3 cm. A surgical staple line is present on one end. The opposite end is unstapled and is identified as the proximal end. The bowel is open longitudinally to reveal a patent lumen. The mucosa is quinones and unremarkable. Sectioning reveals few shallow diverticula. There is no grossly recognizable perforation site however there is an adjacent 1.5 cm pericolic abscess cavity. Random sectioning through the attached pericolic fat reveals a single 0.4 cm pink-quinones tentatively identified lymph node. Summary of sections: T-O-uorpkchbocriflir sampled diverticula E-pericolic abscess cavity F-single randomly sampled pericolic lymph node Florin Dueñas, PRuddyARuddy Microscopic Description: Slides contain portions of colonic diverticula, reactive lymph nodes and a peridiverticular abscess. Malignant features are not present. 1: [id number] K57.20
== END 2016-08-24 10:11 | disposition home or self-care (01) | DRG 330 ==
LOC: OR 06:18 → EDSTATUS 11:22 → MS 14:45
PROVIDERS: ADMIT Surgery; ATTEND Surgery
PROC: 0DTN4ZZ Resection of Sigmoid Colon, Percutaneous Endoscopic Approach (ICD-10-PCS; principal; 2016-08-21)
DX: K57.20 Diverticulitis of large intestine with perforation and abscess without bleeding (principal); K21.9 Gastro-esophageal reflux disease without esophagitis